=== PATIENT | female | born 1980 | race African-American/Black ===

== ENCOUNTER 2024-05-05 09:58 | Emergency (ER) | payer MEDICAID ==
[~2024-05-05] VITALS: Ht 162.6 cm; Wt 79.4 kg
[2024-05-05 10:03] VITALS: PULSE 103; O2SAT 100
[2024-05-05 10:14] VITALS: BP 130/78; RESP 16; TEMP 98.2; O2SAT 97
== END 2024-05-05 11:41 | disposition home or self-care (01) ==
LOC: ER 09:58
DX: T19.2XXA Foreign body in vulva and vagina, initial encounter (principal); Z88.0 Allergy status to penicillin; W44.8XXA Other foreign body entering into or through a natural orifice, initial encounter
CPT/HCPCS: 99284; Z7610